=== PATIENT | female | born 1940 | race Caucasian/White ===

== ENCOUNTER 2018-01-21 14:30 | Emergency (ER) | payer OTHER ==
--- OUTSIDE RECORDS SUMMARY | 2018-01-21 14:32 | XMS REPORT | Clinical Summary ---
:1940 Author Organization [facility] Address [address] [place] [address] Care Team Providers Name Role Phone Everton Alcaraz MD Primary Care Provider Allergies Active Allergy Reactions Severity Noted Date Comments Aspirin GI Intolerance 07/12/2016 Codeine GI Intolerance 07/12/2016 Current Medications Prescription Sig. Disp. Refills Start Date End Date Status zolpidem (AMBIEN) 5 MG Take 5 mg by mouth Active tablet nightly as needed for sleep. amLODIPine (NORVASC) 5 MG Take 5 mg by mouth Active tablet daily. lisinopril Take 5 mg by mouth Active (PRINIVIL,ZESTRIL) 5 MG daily. tablet levothyroxine (SYNTHROID, Take 50 mcg by Active LEVOTHROID) 50 MCG tablet mouth every morning. Active Problems Problem Noted Date Diaphragmatic hernia 07/12/2016 Social History Tobacco Use Types Packs/Day Years Used Date Never Smoker Sex Assigned at Date Recorded Not on file Last Filed Vital Signs Not on file Plan of Treatment Health Maintenance Due Date Last Done Comments SHINGRIX VACCINE (#1) 1989 ZOSTER VACCINE 1999 PNEUMOCOCCAL POLYSACCHARIDE VACCINE AGE 65 AND OVER 2004 PNEUMOCOCCAL-13 2004 INFLUENZA VACCINE 03/14/2018 Implants Implanted Type Area Truss Driver Helper Device Expiration Model / Identifier Date Serial / Lot Tissue Renfrcmnt Bioabsrbl 7x10cm [place] Bio-A - [id number] Surgical N/A: W L GORE 08/13/2018 [id number] / Implanted: 07/12/2016 (Quantity not on file) Mesh or Esophagus [id number] / Tissue [id number] Barrier Products Results Not on fileafter 01/20/2017 Insurance Payer Benefit Plan / Group Subscriber ID Type Phone Address MEDICARE RAILROAD MEDICARE RAILROAD xxxxxxxxxxx Medicare Home: [address] [place], [place] [phone] [place] [address]
[2018-01-21] MEDS ORDERED: FENTANYL CITR 100 MCG/2 ML ONE ×2 (15:14→16:21)
[2018-01-21 15:22] LABS: Absolute Lymphocytes (CBC) 2.2 K/uL (0.7-4.9); Absolute Monocytes 0.9 K/uL (0.1-1.3); Absolute Neutrophil 8.5 K/uL (1.8-8.0); Basophils % 0.5 % (0-1.3); Eosinophils % 0.8 % (0-4.4); Hematocrit 41.1 % (36.0-45.0); Lymphocytes % 18.5 % (15.3-44.8); MCH 33.7 pg (27.0-35.0); MCV 101.6 fL (80-100); MPV 9.8 fL (7.6-11.3); Monocytes % 7.4 % (3.3-12.3); RBC Red Blood Cell Count 4.05 M/uL (3.86-4.86)
[2018-01-21 16:04] LABS: Potassium 4.6 mEq/L (3.6-5.0)
[2018-01-21] MEDS ORDERED: NA CHLORIDE 0.9% 1,000 ML ONE ×2 (16:25→16:27)
--- NOTE | 2018-01-21 17:34 | RAD REPORT ---
EXAM DESCRIPTION: CT - Head C Spine Derek Machado - 01/21/2018 5:04 pm CLINICAL HISTORY: Head and neck injury with chest and abdominal pain status post fall from report. . Head and neck pain . TECHNIQUE: Computed axial tomography of the head and cervical spine was obtained Computed axial tomography of the chest, abdomen and pelvis was obtained. 100 cc Isovue-300 was given intravenously coronal and sagittal reconstruction was performed. All CT scans are performed using dose optimization technique as appropriate and may include automated exposure control or mA/KV adjustment according to patient size. COMPARISON: CT abdomen January 2017 FINDINGS: An intracranial bleed is not seen. Mild to moderate low-density areas within periventricul ar, deep and subcortical white matter likely represent ischemic changes secondary to small vessel dis ease. The ventricles are normal in caliber. An extra-axial fluid collection is not noted. Minimal anterior subluxation of C2 on C3 is present. Mild posterior subluxation of C5 on C6 is seen. Spondylosis is most marked at C5-6 and C6-7 resulting in mild central and mild to moderate foraminal stenosis. A cervical fracture is not seen. No dislocation is seen. A mediastinal hematoma is not noted. A pleural effusion is not present. A lung contusion is not seen. Nondisplaced fractures involve the 6th,, seventh and eighth lateral right ribs. Additional bilateral rib fractures probably are chronic. The liver, spleen, pancreas, adrenals, kidneys and bladder do not demonstrate a traumatic injury. Sma ll hepatic cyst is present. Prominence of the biliary tree presumably is physiologic in this elderly patient status post cholecystectomy. This should be correlated clinically with appropriate lab values . . A small hiatal hernia is present IMPRESSION: 1. No acute intracranial abnormality is seen 2. A cervical fracture is not visualized. If the patient continues have symptoms to suggest intracran ial/spinal cord pathology then MRI would be recommended. 3. Nondisplaced acute fractures involving the sixth, seventh and eighth right lateral ribs. 4. No traumatic injury involving the abdomen/pelvis is seen
[2018-01-21] MEDS ORDERED: ONDANSETRON 4 MG/2 ML VIAL ONE (18:26)
[2018-01-21] MEDS ORDERED: HYDROCODONE/APAP 10/325 TAB ONE (18:26)
--- NOTE | 2018-01-21 19:02 | ER ---
Nurse's Notes [facility] Name: Machelle Suggs Age: 77 yrs Sex: Female : 1940 Arrival Date: 01/21/2018 Time: 14:39 Bed 26 Private MD: Diagnosis: Multiple fractures of ribs, right side Presentation: 01/21 15:41 Presenting complaint: EMS states: Pt. tripped and fell off from her porch approx. 3 rk2 feet, denies LOC. C/O back and rib pain. Pt. states that her dog tripped her. Transition of care: patient was not received from another setting of care. Onset of symptoms was January 21, 2018. Risk Assessment: Do you want to hurt yourself or someone else? Patient reports no desire to harm self or others. Initial Sepsis Screen: Does the patient meet any 2 criteria? No. Patient's initial sepsis screen is negative. Does the patient have a suspected source of infection? No. Patient's initial sepsis screen is negative. Care prior to arrival: Cervical collar in place. IV initiated. 15:41 Method Of Arrival: EMS [facility] 15:41 Acuity: ALIA 3 rk2 Triage Assessment: 15:42 General: Appears uncomfortable, well developed, well nourished, Behavior is calm, rk2 cooperative. Pain: Complains of pain in rib/back pain. Neuro: Level of Consciousness is alert, obeys commands, Oriented to person, place, time, situation. Respiratory: Airway is patent Respiratory effort is even, unlabored, Respiratory pattern is regular, symmetrical. Derm: Skin is pink, warm \T\ dry. Historical: - Allergies: 15:44 No Known Allergies; rk2 - Immunization history:: Pneumococcal vaccine status is unknown. - Social history:: Smoking status: Patient/guardian denies using tobacco. - Ebola Screening: : Patient negative for fever greater than or equal to 101.5 degrees Fahrenheit, and additional compatible Ebola Virus Disease symptoms. Screenin:39 Abuse screen: Denies threats or abuse. Nutritional screening: No deficits noted. rk2 Tuberculosis screening: No symptoms or risk factors identified. Fall Risk Assessment: 14:39 General: Appears uncomfortable, slender, well groomed, well developed, well nourished, tl3 Behavior is calm, cooperative, appropriate for age. Pain: Complains of pain in rib pain bilaterally. Neuro: Level of Consciousness is awake, alert, Oriented to person, place, time, situation, Appropriate for age. Cardiovascular: Heart tones S1 S2 present Patient's skin is warm and dry. Respiratory: Airway is patent Respiratory effort is even, unlabored, Respiratory pattern is regular, symmetrical, Breath sounds are clear bilaterally. GI: No deficits noted. No signs and/or symptoms were reported involving the gastrointestinal system. : No deficits noted. No signs and/or symptoms were reported regarding the genitourinary system. EENT: No deficits noted. No signs and/or symptoms were reported regarding the EENT system. Derm: No deficits noted. No signs and/or symptoms reported regarding the dermatologic system. 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 Pain is 9 out of 10 on a pain scale. pt tripped over puppy and fell of of porch flat onto her back, received 100mcg of Fentanyl and 5 mg morphine HARDWARE SUPPLIES SALES REPRESENTATIVE has no head pain, no LOC no vomiting, c/o pain mainly to bilateral rib area with palpation. 16:38 Reassessment: Pt. taken to CT. rk2 17:30 Reassessment: Patient appears in no apparent distress at this time. No changes from [facility] previously documented assessment. Patient and/or family updated on plan of care and expected duration. Pain level reassessed. 19:06 Reassessment: Pt. able to sit up and stand up with minimal assistance... pt. taken to [facility] restroom by wheelchair. Vital Signs: 14:39 BP 130 / 52; Pulse 76; Resp 18; Pulse Ox 100% ; tl3 15:00 BP 121 / 77; Pulse 52; Resp 17; Pulse Ox 98% on R/A; rk2 16:30 BP 168 / 79; Pulse 79; Resp 22; Pulse Ox 98% on 2 lpm NC; tl3 16:30 pt O2 sats dropped to 76% on room air, 2 L/M placed per NC, pt breathing shallow quick tl3 breaths ED Course: 14:39 Patient arrived in ED. iw 14:39 removal of back board. Maintain EMS IV. Dressing intact. Good blood return noted. Site tl3 clean \T\ dry. Gauge \T\ site: 20g RAC. 14:41 Aj Ferrer MD is Attending Physician. mraimar 14:46 Shun Olvera NP is PHCP. pm1 15:16 Betty Nicole, RN is Primary Nurse. rk2 15:39 Patient has correct armband on for positive identification. Placed in gown. Bed in low rk2 position. Call light in reach. Pulse ox on. 15:42 Triage completed. rk2 15:44 Arm band placed on right wrist. rk2 16:37 CT Traumagram (Head C Spine CAP W Con) Sent. rk2 17:03 CT completed. Patient moved to CT via stretcher. Patient moved back from CT. cw1 17:04 CT Traumagram (Head C Spine CAP W Con) In Process Unspecified. EDMS 19:52 IV discontinued. rk2 Administered Medications: 15:15 Drug: fentaNYL (PF) 50 mcg Route: IVP; Site: right forearm; rk2 19:30 Follow up: Response: No adverse reaction rk2 16:22 Drug: fentaNYL (PF) 50 mcg Route: IVP; Site: right forearm; rk2 19:30 Follow up: Response: No adverse reaction rk2 16:26 Drug: NS 0.9% 1000 ml Route: IV; Rate: 1000 ml; Site: right forearm; rk2 18:27 Drug: Zofran 4 mg Route: IVP; Site: right forearm; rk2 19:30 Follow up: Response: No adverse reaction rk2 18:28 Drug: Hubbard 10 mg-325 mg 1 tabs Route: PO; rk2 19:30 Follow up: Response: No adverse reaction rk2 Outcome: 19:01 Discharge ordered by . pm1 19:51 Discharged to home via wheelchair. rk2 19:51 Condition: improved 19:51 Discharge instructions given to patient, Prescriptions given X 19:52 Patient left the ED. rk2 Signatures: Dispatcher [employer] EDMS Aj Ferrer MD MD cha Williams, Irene, RN Mar Hernandez cw1 Shun Olvera, JAMIE MEDICAL CARE ADMINISTRATOR pm1 Betty Nicole, ROOSEVELT ALBERT rk2 Barbara Delaney RN RN tl3
--- NOTE | 2018-01-21 19:02 | EDPHYS ---
Physician Documentation [facility] Name: Machelle Suggs Age: 77 yrs Sex: Female : 1940 Arrival Date: 01/21/2018 Time: 14:39 Bed 26 Private MD: ED Physician Aj Ferrer HPI: 01/21 17:32 This 77 yrs old Female presents to ER via EMS with complaints of Fall injury, pm1 rib pain. 17:32 Details of fall: The patient fell from a height, patient fell from her porch. Onset: pm1 The symptoms/episode began/occurred just prior to arrival. Severity of symptoms: in the emergency department the symptoms have improved, Patient given fentanyl and morphine IV in route by EMS. The patient has not experienced similar symptoms in the past. patient tripped over her dog and fell backwards off the porch. Porch approximately 3 foot high. Patient complaining of bilateral rib anterior rib pain. No headache, LOC, or neck pain. Patient without any back pain. Patient arrived by EMS back boarded and with C-collar. Historical: - Allergies: 15:44 No Known Allergies; rk2 - Immunization history:: Pneumococcal vaccine status is unknown. - Social history:: Smoking status: Patient/guardian denies using tobacco. - Ebola Screening: : Patient negative for fever greater than or equal to 101.5 degrees Fahrenheit, and additional compatible Ebola Virus Disease symptoms. ROS: 17:39 Constitutional: Negative for fever, chills, and weight loss, Eyes: Negative for injury, pm1 pain, redness, and discharge, ENT: Negative for injury, pain, and discharge, Neck: Negative for injury, pain, and swelling, Cardiovascular: Negative for chest pain, palpitations, and edema, Respiratory: Negative for shortness of breath, cough, wheezing, and pleuritic chest pain, Abdomen/GI: Negative for abdominal pain, nausea, vomiting, diarrhea, and constipation, Back: Negative for injury and pain, : Negative for injury, bleeding, discharge, and swelling, MS/Extremity: Negative for injury and deformity, Skin: Negative for injury, rash, and discoloration, Neuro: Negative for headache, weakness, numbness, tingling, and seizure. 17:39 Abdomen/GI: Positive for anterior lower rib pain. Exam: 17:40 Constitutional: This is a well developed, well nourished patient who is awake, alert, pm1 and in no acute distress. Head/Face: Normocephalic, atraumatic. Eyes: Pupils equal round and reactive to light, extra-ocular motions intact. Lids and lashes normal. Conjunctiva and sclera are non-icteric and not injected. Cornea within normal limits. Periorbital areas with no swelling, redness, or edema. ENT: Nares patent. No nasal discharge, no septal abnormalities noted. Tympanic membranes are normal and external auditory canals are clear. Oropharynx with no redness, swelling, or masses, exudates, or evidence of obstruction, uvula midline. Mucous membranes moist. Neck: Trachea midline, no thyromegaly or masses palpated, and no cervical lymphadenopathy. Supple, full range of motion without nuchal rigidity, or vertebral point tenderness. No Meningismus. 17:40 Cardiovascular: Regular rate and rhythm with a normal S1 and S2. No gallops, murmurs, or rubs. No pulse deficits. Respiratory: Lungs have equal breath sounds bilaterally, clear to auscultation and percussion. No rales, rhonchi or wheezes noted. No increased work of breathing, no retractions or nasal flaring. Abdomen/GI: Soft, non-tender, with normal bowel sounds. No distension or tympany. No guarding or rebound. No evidence of tenderness throughout. Back: No spinal tenderness. No costovertebral tenderness. Full range of motion. Skin: Warm, dry with normal turgor. Normal color with no rashes, no lesions, and no evidence of cellulitis. MS/ Extremity: Pulses equal, no cyanosis. Neurovascular intact. Full, normal range of motion. 17:40 Chest/axilla: Inspection: normal, Palpation: tenderness, of the lower lateral right and left ribs, that totally reproduces the patient's complaints. 17:40 Neuro: Orientation: is normal, Mentation: is normal, Cranial nerves: CN II- XII are normal as tested, Cerebellar function: normal finger to nose testing, Motor: moves all fours, strength is 5/5 in all extremities. Vital Signs: 14:39 BP 130 / 52; Pulse 76; Resp 18; Pulse Ox 100% ; tl3 15:00 BP 121 / 77; Pulse 52; Resp 17; Pulse Ox 98% on R/A; rk2 16:30 BP 168 / 79; Pulse 79; Resp 22; Pulse Ox 98% on 2 lpm NC; tl3 16:30 pt O2 sats dropped to 76% on room air, 2 L/M placed per NC, pt breathing shallow quick tl3 breaths MDM: 14:42 Patient medically screened. [facility] 18:08 Data reviewed: vital signs. Data interpreted: Pulse oximetry: on room air is 98 %. pm1 Interpretation: normal. Counseling: I had a detailed discussion with the patient and/or guardian regarding: the historical points, exam findings, and any diagnostic results supporting the discharge/admit diagnosis, lab results, radiology results. 18:56 ED course: Patient of Dr. Lee. Patient offered admission. Patient declined and pm1 requested pain medications and antinausea medicine to take at home. Will discharge patient home with Tylenol #3 and Zofran as she requested. Instructed patient on return precaustions. 01/21 14:48 Order name: Basic Metabolic Panel; Complete Time: 16:12 pm1 01/21 14:48 Order name: CBC with Diff; Complete Time: 15:35 pm1 01/21 14:48 Order name: Creatinine for Radiology; Complete Time: 16:39 pm1 01/21 14:48 Order name: Type And Screen; Complete Time: 16:39 pm1 01/21 16:47 Order name: ABO/RH no charge; Complete Time: 16:55 EDMS 01/21 19:32 Order name: Urine Dipstick--Ancillary (enter results) 2 01/21 14:48 Order name: CT Traumagram (Head C Spine CAP W Con); Complete Time: 17:47 pm1 01/21 14:48 Order name: Labs collected and sent; Complete Time: 15:16 pm1 01/21 14:48 Order name: Urine Dipstick-Ancillary (obtain specimen); Complete Time: 19:51 pm1 01/21 15:30 Order name: Labs - recollect needed; Complete Time: 16:06 bd Administered Medications: 15:15 Drug: fentaNYL (PF) 50 mcg Route: IVP; Site: right forearm; rk2 19:30 Follow up: Response: No adverse reaction rk2 16:22 Drug: fentaNYL (PF) 50 mcg Route: IVP; Site: right forearm; rk2 19:30 Follow up: Response: No adverse reaction rk2 16:26 Drug: NS 0.9% 1000 ml Route: IV; Rate: 1000 ml; Site: right forearm; rk2 18:27 Drug: Zofran 4 mg Route: IVP; Site: right forearm; rk2 19:30 Follow up: Response: No adverse reaction rk2 18:28 Drug: [place] 10 mg-325 mg 1 tabs Route: PO; rk2 19:30 Follow up: Response: No adverse reaction rk2 Disposition: 01/22 09:08 Co-signature as Attending Physician, Aj Ferrer MD I agree with the assessment and marimar plan of care. Disposition: 01/21/18 19:01 Discharged to Home. Impression: Multiple fractures of ribs, right side. - Condition is Stable. - Discharge Instructions: Rib Fracture. - Prescriptions for Tylenol- Codeine #3 300-30 mg Oral Tablet - take 2 tablet by ORAL route every 6 hours As needed; 30 tablet. Zofran 4 mg Oral Tablet - take 1 tablet by ORAL route every 8 hours As needed; 20 tablet. - Medication Reconciliation Form, Thank You Letter, Prescription Opioid Use form. - Follow up: Emergency Department; When: As needed; Reason: Worsening of condition. Follow up: Private Physician; When: 2 - 3 days; Reason: Recheck today's complaints, Continuance of care, Re-evaluation by your physician. - Problem is new. - Symptoms have improved. Signatures: Dispatcher [employer] EDMS Mindy Desouza Corey, MD MD cha Marinas, Patrick, RAZOR GRINDER RAZOR GRINDER pm1 Betty Nicole, RN RN rk2 Corrections: (The following items were deleted from the chart) 01/21 19:52 19:01 01/21/2018 19:01 Discharged to Home. Impression: Multiple fractures of ribs, rk2 right side. Condition is Stable. Forms are Medication Reconciliation Form, Thank You Letter, Antibiotic Education, Prescription Opioid Use. Follow up: Emergency Department; When: As needed; Reason: Worsening of condition. Follow up: Private Physician; When: 2 - 3 days; Reason: Recheck today's complaints, Continuance of care, Re-evaluation by your physician. Problem is new. Symptoms have improved. pm1
[2018-01-21 19:54] LABS: Urine Blood NEGATIVE (NEG); Urine Glucose NEGATIVE (NEG); Urine Protein NEGATIVE (NEG); Urine Specific Gravity 1.015 (1.005-1.030); Urine pH 5.5 (5.0-7.0)
== END 2018-01-21 19:52 | disposition home or self-care (01) ==
LOC: ER 14:30
DX: S22.41XA Multiple fractures of ribs, right side, initial encounter for closed fracture (principal); W17.89XA Other fall from one level to another, initial encounter; Y93.89 Activity, other specified; Y92.009 Unspecified place in unspecified non-institutional (private) residence as the place of occurrence of the external cause
CPT/HCPCS: 36415; 70450; 71260; 72125; 74177; 80048; 81003; 85025; 86850; 86900; 86901; J2405; J3010 ×2; J7030 ×2; Q9967; 96374; 96375; 99284

== ENCOUNTER 2018-07-04 12:43 | Observation (INO) | payer OTHER ==
--- OUTSIDE RECORDS SUMMARY | 2018-07-04 12:46 | XMS REPORT | Clinical Summary ---
:1940 Author Organization [facility] Address [address] [place] [address] Care Team Providers Name Role Phone Everton Alcaraz MD Primary Care Provider Allergies Active Allergy Reactions Severity Noted Date Comments Aspirin GI Intolerance 07/12/2016 Codeine GI Intolerance 07/12/2016 Medications Medication Sig Dispensed Refills Start Date End Date Status zolpidem (AMBIEN) 5 MG Take 5 mg by 0 Active tablet mouth nightly as needed for sleep. amLODIPine (NORVASC) 5 Take 5 mg by 0 Active MG tablet mouth daily. lisinopril Take 5 mg by 0 Active (PRINIVIL,ZESTRIL) 5 MG mouth daily. tablet levothyroxine Take 50 mcg by 0 Active (SYNTHROID, LEVOTHROID) mouth every 50 MCG tablet morning. Active Problems Problem Noted Date Diaphragmatic hernia 07/12/2016 Social History Tobacco Use Types Packs/Day Years Used Date Never Smoker Sex Assigned at Date Recorded Not on file Job Start Date Occupation Industry Not on file Not on file Not on file Travel History Travel Start Travel End No recent travel history available. Last Filed Vital Signs Not on file Plan of Treatment Health Maintenance Due Date Last Done Comments SHINGRIX VACCINE (1 of 2) 1989 ZOSTER VACCINE 1999 PNEUMOCOCCAL POLYSACCHARIDE VACCINE AGE 65 AND OVER 2004 PNEUMOCOCCAL-13 2004 INFLUENZA VACCINE 03/14/2018 Implants Implanted Type Area Manager Food Safety Device Shelf Model / Identifier Expiration Serial / Date Lot Tissue Renfrcmnt Bioabsrbl 7x10cm [place] [employer] - [id number] Surgical N/A: W L GORE 08/13/2018 [id number] / Implanted: 07/12/2016 (Quantity not on file) Mesh or Esophagus [id number] / Tissue [id number] Barrier Products Results Not on fileafter 07/03/2017 Insurance Payer Benefit Plan / Group Subscriber ID Type Phone Address [facility]ICARE [facility]AD [facility] Medicare Advance Directives Patient has advance care planning documents, and code status on file. For more information, please contact:[place] [address] Code Status Date Activated Date Inactivated Comments Full Code 07/12/2016 3:16 PM 07/15/2016 7:32 PM Code Status decision reached by: Patient
[2018-07-04 13:24] LABS: Arterial Blood Carboxyhemoglob 1.1 % (0-1.5); Blood Gas Oxyhemoglobin 96.8 % (94-97)
[2018-07-04] MEDS ORDERED: IBUPROFEN 200 MG TAB PO ONE (14:24)
[2018-07-04] MEDS ORDERED: ACETAMINOPHEN 500 MG TAB ONE (14:25)
[2018-07-04] MEDS ORDERED: ONDANSETRON 4 MG/2 ML VIAL ONE (14:25)
[2018-07-04] MEDS ORDERED: NA CHLORIDE 0.9% 1,000 ML ONE ×2 (14:25→16:12)
--- NOTE | 2018-07-04 14:28 | RAD REPORT ---
EXAM DESCRIPTION: RAD - Chest Single View - 07/04/2018 2:08 pm CLINICAL HISTORY: DYSPNEA Chest pain. COMPARISON: Chest Pa And Lat (2 Views) dated 06/24/2016; CHEST PA AND LAT 2 VIEW dated 09/17/2012 FINDINGS: Portable technique limits examination quality. The lungs are grossly clear. The heart is normal in size. Tortuous thoracic aorta with a hiatal herni a noted. IMPRESSION: No acute intrathoracic process suspected.
[2018-07-04 14:37] LABS: Urine Blood NEGATIVE (NEG); Urine Glucose NEGATIVE (NEG); Urine Protein NEGATIVE (NEG); Urine pH 5.5 (5.0-7.0)
[2018-07-04] MEDS ORDERED: FENTANYL CITR 100 MCG/2 ML ONE (15:07)
[2018-07-04 15:27] LABS: Absolute Lymphocytes (CBC) 3.2 K/uL (0.7-4.9); MCV 99.1 fL (80-100)
[2018-07-04 15:29] LABS: Absolute Neutrophil 5.4 K/uL (1.8-8.0); Basophils % 0.7 % (0-1.3); Eosinophils % 0.7 % (0-4.4); Hematocrit 47.8 % (36.0-45.0); Lymphocytes % 32.7 % (15.3-44.8); MPV 9.5 fL (7.6-11.3); Monocytes % 10.5 % (3.3-12.3); RBC Red Blood Cell Count 4.82 M/uL (3.86-4.86)
[2018-07-04 15:31] LABS: Protime INR 0.97
--- NOTE | 2018-07-04 15:33 | EKG ---
Test Date: 2018-07-04 Test Time: 13:05:12 Learning Program Manager: BRANDON MEASUREMENT RESULTS: Intervals: Rate: 96 SC: 168 QRSD: 70 QT: 370 QTc: 467 [place]: P: 47 SC: 168 QRS: 7 T: 27 INTERPRETIVE STATEMENTS: Normal sinus rhythm Cannot rule out Anterior infarct, age undetermined Abnormal ECG Compared to ECG 10/27/2016 14:25:15 Myocardial infarct finding now present Atrial premature complex(es) no longer present Electronically Signed On 07-04-18 15:32:33 RELATIONS MANAGER by Tiago Morton
[2018-07-04 15:46] LABS: ALT/SGPT 17 U/L (12-78); AST/SGOT 22 U/L (15-37); Albumin 2.9 g/dL (3.4-5.0); Alkaline Phosphatase 114 U/L (45-117); BUN Blood Urea Nitrogen 13 mg/dL (7-18); Bicarbonate 20 mmol/L (21-32); Bilirubin Direct 0.4 mg/dL (0-0.2); Bilirubin Total 1.1 mg/dL (0.2-1.0); CKMB Creatine Kinase MB < 1.0 ng/mL (0.3-3.6); Creatine Phosphokinase 31 U/L (26-192); Glucose Level 92 mg/dL (74-106); Potassium 4.4 mmol/L (3.5-5.1); Protein, Total 6.4 g/dL (6.4-8.2); Sodium Level 140 mmol/L (136-145); Troponin (Emerg Dept Use Only) < 0.02 ng/mL (0.0-0.045)
[2018-07-04 15:55] LABS: Platelet Estimate ADEQ; Urine White Blood Cell Casts OK
[2018-07-04 15:57] LABS: Blood Morphology Comment NOT SEEN (NOT SEEN)
[2018-07-04] MEDS ORDERED: MORPHINE 4 MG/ML SYR ONE (16:39)
--- NOTE | 2018-07-04 17:09 | RAD REPORT ---
EXAM DESCRIPTION: CT - Chest For Pe Angio - 07/04/2018 4:58 pm CLINICAL HISTORY: sob COMPARISON: January [address] TECHNIQUE: Dynamically enhanced axial 3 mm thick images of the chest were obtained during administra tion of <100> mL Isovue 370 IV contrast. Coronal and oblique reconstruction images were generated and reviewed. Exam utilizes a protocol for optimal evaluation of pulmonary arterial tree. Maximum intensity projections 3D imaging was utilized All CT scans are performed using dose optimization technique as appropriate and may include automated exposure control or mA/KV adjustment according to patient size. FINDINGS: A pulmonary embolus is not seen. A thoracic aortic aneurysm is not noted. A pleural effusion is not seen. A pericardial effusion is not seen. A small to moderate hiatal hernia is seen A lung consolidation is not present. A sub centimeter left lower lobe nodule is unchanged IMPRESSION: Negative for a pulmonary embolism.
--- NOTE | 2018-07-04 17:17 | RAD REPORT ---
EXAM DESCRIPTION: CT - Abdomen Pelvis W Contrast - 07/04/2018 4:58 pm CLINICAL HISTORY: Abdominal pain COMPARISON: none. TECHNIQUE: Computed axial tomography of the abdomen pelvis was obtained. 100 cc Isovue-300 was admin istered intravenously. Oral contrast was not requested which limits evaluation of bowel. All CT scans are performed using dose optimization technique as appropriate and may include automated exposure control or mA/KV adjustment according to patient size. FINDINGS: Images are degraded by patient motion artifact Fatty infiltration liver. 2 centimeter hepatic cyst. The common hepatic common bile ducts are more di lated than on the prior exam measuring up to 16 millimeters. Cholecystectomy has been performed The Spleen, pancreas, adrenal and kidneys appear unremarkable. Small to moderate hiatal hernia Diverticula stem from the colon without evidence of diverticulitis. The appendix is normal IMPRESSION: Prominence of the biliary tree. This may be physiologic or secondary to pathology such a s a stricture. This should be correlated clinically with appropriate lab values. MRCP may be helpful for further evaluation
--- NOTE | 2018-07-04 17:30 | ER ---
Nurse's Notes [facility] Name: Machelle Suggs Age: 78 yrs Sex: Female : 1940 Arrival Date: 07/04/2018 Time: 12:49 Bed 19 Private MD: Diagnosis: Nausea and vomiting;Dehydration;Dyspnea;Alkalosis Presentation: 07/04 12:42 Presenting complaint: EMS states: dyspnea after getting up from her recliner ambulating sv to the living room. Pt reports having n/v the past 2 days and not eating. BP 150/86 HR-118 98% RA Temp-98.3 BS-109. Transition of care: patient was not received from another setting of care. Onset of symptoms was July 04, 2018. Risk Assessment: Do you want to hurt yourself or someone else? Patient reports no desire to harm self or others. Initial Sepsis Screen: Does the patient meet any 2 criteria? No. Patient's initial sepsis screen is negative. Does the patient have a suspected source of infection? No. Patient's initial sepsis screen is negative. Care prior to arrival: Glucose check: 109. 12:42 Method Of Arrival: EMS: [facility] sv 12:42 Acuity: ALIA 3 sv Triage Assessment: 12:55 General: Appears in no apparent distress. uncomfortable, Behavior is cooperative, sv anxious. Pain: Complains of pain in hips Pain currently is 2 out of 10 on a pain scale. Is chronic. Neuro: Level of Consciousness is awake, alert, obeys commands, Oriented to person, place, time, situation, Moves all extremities. Full function Speech is normal. Respiratory: Reports shortness of breath on exertion Airway is patent Respiratory effort is even, labored, Respiratory pattern is symmetrical, tachypnea Breath sounds are clear bilaterally. Onset: The symptoms/episode began/occurred this morning, the patient has moderate shortness of breath. GI: Reports nausea, vomiting. Derm: Skin is normal. Historical: - Allergies: 12:54 No Known Allergies; sv - Home Meds: 12:54 Dexilant oral oral [Active]; Doxycycline Oral [Active]; Phenergan Oral [Active]; sv Prilosec Oral [Active]; Tramadol Oral [Active]; Zofran Oral [Active]; - PMHx: 12:54 Hypertension; Neuropathy; left breast cancer; sv - Immunization history:: Adult Immunizations up to date. - Social history:: Smoking status: Patient/guardian denies using tobacco. - Ebola Screening: : No symptoms or risks identified at this time. Screenin:57 Abuse screen: Denies threats or abuse. Denies injuries from another. Nutritional sv screening: No deficits noted. Tuberculosis screening: No symptoms or risk factors identified. Fall Risk None identified. Assessment: 12:57 Cardiovascular: Rhythm is sinus tachycardia. sv 13:00 Reassessment: Patient and/or family updated on plan of care and expected duration. Pain sv level reassessed. Patient is alert, oriented x 3, equal unlabored respirations, skin warm/dry/pink. Pain: Complains of pain in face and scalp Pain currently is 8 out of 10 on a pain scale. 14:53 Reassessment: Patient appears in no apparent distress at this time. No changes from sv previously documented assessment. Patient and/or family updated on plan of care and expected duration. Pain level reassessed. Patient is alert, oriented x 3, equal unlabored respirations, skin warm/dry/pink. 16:38 Reassessment: Patient appears in no apparent distress at this time. No changes from sv previously documented assessment. Patient and/or family updated on plan of care and expected duration. Pain level reassessed. Patient is alert, oriented x 3, equal unlabored respirations, skin warm/dry/pink. 17:23 Reassessment: Patient appears in no apparent distress at this time. No changes from sv previously documented assessment. Patient and/or family updated on plan of care and expected duration. Pain level reassessed. Patient is alert, oriented x 3, equal unlabored respirations, skin warm/dry/pink. 18:00 Reassessment: Patient appears in no apparent distress at this time. No changes from sv previously documented assessment. Patient and/or family updated on plan of care and expected duration. Pain level reassessed. Patient is alert, oriented x 3, equal unlabored respirations, skin warm/dry/pink. Nurse to call back for report. Vital Signs: 12:55 BP 157 / 82; Pulse 98; Resp 26; Temp 98.6; Pulse Ox 100% on R/A; Weight 62.6 kg; Height sv 5 ft. 2 in. (157.48 cm); Pain 2/10; 15:03 BP 155 / 83; Pulse 100; Resp 25; Pulse Ox 100% on 2 lpm NC; jb1 16:38 BP 122 / 105; Pulse 86; Resp 26; Temp 98.8; Pulse Ox 100% on R/A; sv 12:55 Body Mass Index 25.24 (62.60 kg, 157.48 cm) sv ED Course: 12:49 Patient arrived in ED. sv 12:49 Carin Hutchinson, RN is Primary Nurse. sv 12:52 Triage completed. sv 12:55 Arm band placed on. sv 12:57 Awaiting ED provider evaluation. sv 12:57 Patient has correct armband on for positive identification. Placed in gown. Bed in low sv position. Call light in reach. Side rails up X2. monitor tech on. Pulse ox on. NIBP on. Door closed. Warm blanket given. Head of bed elevated. 13:08 Kristen Noland FNP-C is PHCP. kb 13:08 Aj Ferrer MD is Attending Physician. kb 13:13 Missed attempt(s): 22 gauge in right antecubital area. jb1 13:14 Missed attempt(s): 22 gauge in right forearm. jb1 13:26 EKG done, by cardiopulmonary technologist chief. reviewed by Kristen SOLANO. sm3 13:45 Initial lab(s) drawn, by ct, sent to lab. Inserted saline lock: 22 gauge in right sv forearm, using aseptic technique. ,using aseptic technique. diffusics Blood collected. Flushed right forearm with 5 ml normal saline. 13:50 X-ray(s) taken. sv 14:09 Chest Single View XRAY In Process Unspecified. EDMS 15:52 Notified Nurse Practitioner and/or Physician Instrument Mechanics Supervisor of a critical lab result(s), sg Lactate 2.2. 16:[address] via stretcher. sv 17:02 CT Chest For PE Angio In Process Unspecified. EDMS 17:02 CT Abd/Pelvis - W/Contrast In Process Unspecified. EDMS 17:27 Sharda Tate MD is Hospitalizing Provider. kb 18:01 No provider procedures requiring assistance completed. Patient admitted, IV remains in sv place. intact. Administered Medications: 14:52 Drug: NS 0.9% 1000 ml Route: IV; Rate: 1000 ml; Site: right forearm; sv 16:00 Follow up: Response: No adverse reaction; IV Status: Completed infusion; IV Intake: sv 1000ml 14:52 Drug: Zofran 4 mg Route: IVP; Site: right forearm; sv 15:29 Follow up: Response: No adverse reaction sv 14:57 Not Given (Patient Refused): Tylenol 1000 mg PO once kb 15:06 Drug: fentaNYL (PF) 25 mcg Route: IVP; Site: right forearm; sv 15:29 Follow up: Response: No adverse reaction sv 16:29 CANCELLED (Duplicate Order): NS 0.9% (30 ml/kg) 30 ml/kg IV at bolus once; Sepsis sv Protocol 16:29 Drug: NS 0.9% 870 ml Route: IV; Rate: bolus; Site: right forearm; sv 18:19 Follow up: Response: No adverse reaction; IV Status: Completed infusion; IV Intake: sv 870ml 16:37 Drug: morphine 2 mg Route: IVP; Site: right forearm; sv 18:19 Follow up: Response: No adverse reaction sv Intake: 16:00 IV: 1000ml; Total: 1000ml. sv 18:19 IV: 870ml; Total: 1870ml. sv Output: 17:23 Urine: 100ml (Voided); Total: 100ml. sv Outcome: 17:28 Decision to Hospitalize by Provider. kb 18:18 Admitted to Med/surg accompanied by tech, via stretcher, room 229, with oxygen, with sv chart, Report called to Charley ALBERT 18:18 Condition: stable 18:18 Instructed on the need for admit. 18:29 Patient left the ED. sv Signatures: Dispatcher [employer] EDMS Eduardo Davis jbKristen Ortega, ULTRASOUND APPLICATIONS SPECIALIST-C ULTRASOUND APPLICATIONS SPECIALIST-Carin Nascimento, RN RN Stevan Garcia RN RN sg Montes, Shakira 3
--- NOTE | 2018-07-04 17:31 | EDPHYS ---
Physician Documentation [facility] Name: Machelle Suggs Age: 78 yrs Sex: Female : 1940 Arrival Date: 07/04/2018 Time: 12:49 Bed 19 Private MD: ED Physician Aj Ferrer HPI: 07/04 14:06 This 78 yrs old Female presents to ER via EMS with complaints of Breathing kb Difficulty, Nausea/Vomiting. 14:06 The patient has shortness of breath with light activity. Onset: The symptoms/episode kb began/occurred today, 1 hour(s) ago. Duration: The symptoms are continuous, and are unchanged since they started. The patient's shortness of breath is aggravated by exertion, is alleviated by nothing. Associated signs and symptoms: Pertinent positives: nausea, vomiting. Severity of symptoms: At their worst the symptoms were moderate in the emergency department the symptoms are unchanged. The patient has not experienced similar symptoms in the past. The patient has been recently seen by a physician: the patient's primary care provider, Dr. Varela. 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 Denies cough, fever and hx of similar symptoms. Reports she has had nausea and vomiting for [address] mahajan [address] was scheduled for today at 1400. . Historical: - Allergies: 12:54 No Known Allergies; sv - Home Meds: 12:54 Dexilant oral oral [Active]; Doxycycline Oral [Active]; Phenergan Oral [Active]; sv Prilosec Oral [Active]; Tramadol Oral [Active]; Zofran Oral [Active]; - PMHx: 12:54 Hypertension; Neuropathy; left breast cancer; sv - Immunization history:: Adult Immunizations up to date. - Social history:: Smoking status: Patient/guardian denies using tobacco. - Ebola Screening: : No symptoms or risks identified at this time. ROS: 14:05 Constitutional: Negative for fever, chills, and weight loss, ENT: Negative for injury, kb pain, and discharge, Neck: Negative for injury, pain, and swelling, Cardiovascular: Negative for chest pain, palpitations, and edema, Back: Negative for injury and pain, MS/Extremity: Negative for injury and deformity, Skin: Negative for injury, rash, and discoloration, Neuro: Negative for headache, weakness, numbness, tingling, and seizure. 14:05 Respiratory: Positive for dyspnea on exertion, shortness of breath, Negative for cough, hemoptysis, orthopnea, pleurisy, sputum production, wheezing. 14:05 Abdomen/GI: Positive for nausea, vomiting, and diarrhea, anorexia, Negative for abdominal pain, constipation, abdominal cramps, abdominal distension. Exam: 14:06 Constitutional: This is a well developed, well nourished patient who is awake, alert, kb and in no acute distress. Head/Face: Normocephalic, atraumatic. ENT: Nares patent. No nasal discharge, no septal abnormalities noted. Tympanic membranes are normal and external auditory canals are clear. Oropharynx with no redness, swelling, or masses, exudates, or evidence of obstruction, uvula midline. Mucous membranes moist. Neck: Trachea midline, no thyromegaly or masses palpated, and no cervical lymphadenopathy. Supple, full range of motion without nuchal rigidity, or vertebral point tenderness. No Meningismus. Chest/axilla: Normal chest wall appearance and motion. Nontender with no deformity. No lesions are appreciated. Cardiovascular: Regular rate and rhythm with a normal S1 and S2. No gallops, murmurs, or rubs. Normal PMI, no JVD. No pulse deficits. Abdomen/GI: Soft, non-tender, with normal bowel sounds. No distension or tympany. No guarding or rebound. No evidence of tenderness throughout. Back: No spinal tenderness. No costovertebral tenderness. Full range of motion. Skin: Warm, dry with normal turgor. Normal color with no rashes, no lesions, and no evidence of cellulitis. MS/ Extremity: Pulses equal, no cyanosis. Neurovascular intact. Full, normal range of motion. Neuro: Awake and alert, GCS 15, oriented to person, place, time, and situation. Cranial nerves II-XII grossly intact. Motor strength 5/5 in all extremities. Sensory grossly intact. Cerebellar exam normal. Normal gait. 14:06 Respiratory: mild respiratory distress is noted, Respirations: labored breathing, that is mild, tachypnea, that is mild, Breath sounds: rhonchi, that are mild, are heard in the left lower lobe and left posterior lower lobe. Vital Signs: 12:55 BP 157 / 82; Pulse 98; Resp 26; Temp 98.6; Pulse Ox 100% on R/A; Weight 62.6 kg; Height sv 5 ft. 2 in. (157.48 cm); Pain 2/10; 15:03 BP 155 / 83; Pulse 100; Resp 25; Pulse Ox 100% on 2 lpm NC; jb1 16:38 BP 122 / 105; Pulse 86; Resp 26; Temp 98.8; Pulse Ox 100% on R/A; sv 12:55 Body Mass Index 25.24 (62.60 kg, 157.48 cm) sv MDM: 13:08 Patient medically screened. kb 14:05 Data reviewed: vital signs, nurses notes. Data interpreted: Pulse oximetry: on room air kb is 100 %. Interpretation: normal. 17:26 Counseling: I had a detailed discussion with the patient and/or guardian regarding: the kb historical points, exam findings, and any diagnostic results supporting the discharge/admit diagnosis, lab results, radiology results, the need for further work-up and treatment in the hospital. Physician consultation: Sharda Tate MD was contacted at 17:27, regarding admission, to the telemetry unit. patient's condition, and will see patient in ED, shortly. 07/04 12:57 Order name: ABG; Complete Time: 14:19 snw 07/04 12:57 Order name: Basic Metabolic Panel; Complete Time: 15:50 snw 07/04 12:57 Order name: Blood Culture Adult (2) snw 07/04 12:57 Order name: CBC with Diff; Complete Time: 15:58 snw 07/04 12:57 Order name: Ckmb; Complete Time: 15:50 snw 07/04 12:57 Order name: CPK; Complete Time: 15:50 snw 07/04 12:57 Order name: Lactate; Complete Time: 15:55 snw 07/04 12:57 Order name: LFT's; Complete Time: 15:50 snw 07/04 12:57 Order name: Procalcitonin; Complete Time: 16:32 snw 07/04 12:57 Order name: Protime (+inr); Complete Time: 15:34 snw 07/04 12:57 Order name: Ptt, Activated; Complete Time: 15:34 snw 07/04 12:57 Order name: Troponin (emerg Dept Use Only); Complete Time: 15:50 snw 07/04 13:50 Order name: Urine Dipstick--Ancillary (enter results); Complete Time: 14:57 bd 07/04 15:33 Order name: CBC Smear Scan; Complete Time: 15:58 EDMS 07/04 12:57 Order name: Chest Single View XRAY; Complete Time: 14:34 snw 07/04 12:57 Order name: Cardiac monitoring; Complete Time: 13:14 snw 07/04 12:57 Order name: EKG - Nurse/Tech; Complete Time: 13:14 snw 07/04 12:57 Order name: IV Saline Lock - Large Bore; Complete Time: 14:12 snw 07/04 12:57 Order name: Labs collected and sent; Complete Time: 14:12 snw 07/04 14:17 Order name: EKG Electrocardiogram; Complete Time: 14:34 EDMS 07/04 15:51 Order name: CT Chest For PE Angio; Complete Time: 17:20 kb 07/04 15:51 Order name: CT Abd/Pelvis - W/Contrast; Complete Time: 17:20 kb 07/04 12:57 Order name: O2 Per Protocol; Complete Time: 13:14 snw 07/04 12:57 Order name: O2 Sat Monitoring; Complete Time: 13:14 snw 07/04 12:57 Order name: Urine Dipstick-Ancillary (obtain specimen); Complete Time: 14:12 snw 07/04 14:08 Order name: Labs - recollect needed; Complete Time: 15:29 bd Administered Medications: 14:52 Drug: NS 0.9% 1000 ml Route: IV; Rate: 1000 ml; Site: right forearm; sv 16:00 Follow up: Response: No adverse reaction; IV Status: Completed infusion; IV Intake: sv 1000ml 14:52 Drug: Zofran 4 mg Route: IVP; Site: right forearm; sv 15:29 Follow up: Response: No adverse reaction sv 14:57 Not Given (Patient Refused): Tylenol 1000 mg PO once kb 15:06 Drug: fentaNYL (PF) 25 mcg Route: IVP; Site: right forearm; sv 15:29 Follow up: Response: No adverse reaction sv 16:29 CANCELLED (Duplicate Order): NS 0.9% (30 ml/kg) 30 ml/kg IV at bolus once; Sepsis sv Protocol 16:29 Drug: NS 0.9% 870 ml Route: IV; Rate: bolus; Site: right forearm; sv 18:19 Follow up: Response: No adverse reaction; IV Status: Completed infusion; IV Intake: sv 870ml 16:37 Drug: morphine 2 mg Route: IVP; Site: right forearm; sv 18:19 Follow up: Response: No adverse reaction sv Disposition: 07/04/18 17:28 Hospitalization ordered by Sharda Tate for Observation. Preliminary diagnosis are Nausea and vomiting, Dehydration, Dyspnea, Alkalosis. - Bed requested for Telemetry/MedSurg (observation). - Status is Observation. sv - Condition is Stable. - Problem is new. - Symptoms have improved. UTI on Admission? No Addendum: 07/09/2018 08:05 Co-signature as Attending Physician, Aj Ferrer MD I agree with the assessment and c benito plan of care. Signatures: Dispatcher [employer] EDMS Kristen Noland, JAVA SECURITY ENGINEER-C JAVA SECURITY ENGINEER-CkMindy Quintana Stephanie, RN Chica Rojas, Aj Hall RN, MD MD cha Therrien, Shelly, JAVA SECURITY ENGINEER-C JAVA SECURITY ENGINEER-Csnw Corrections: (The following items were deleted from the chart) 07/04 14:05 14:05 Abdomen/GI: Positive for nausea, vomiting, and diarrhea, Negative for abdominal kb pain, constipation, abdominal cramps, abdominal distension, anorexia, kb 16:29 15:59 NS 0.9% (30 ml/kg) 30 ml/kg IV at bolus once; Sepsis Protocol ordered. kb sv 16:29 16:29 NS 0.9% (30 ml/kg) 30 ml/kg IV at bolus once; Sepsis Protocol ordered. sv sv 17:49 17:28 Hospitalization Ordered by Sharda Tate MD for Observation. Preliminary diagnosis dw is Nausea and vomiting; Dehydration; Dyspnea; Alkalosis. Bed requested for Telemetry/MedSurg (observation). Status is Observation. Condition is Stable. Problem is new. Symptoms have improved. UTI on Admission? No. kb 18:29 17:49 07/04/2018 17:28 Hospitalization Ordered by Sharda Tate MD for Observation. sv Preliminary diagnosis is Nausea and vomiting; Dehydration; Dyspnea; Alkalosis. Bed requested for Telemetry/MedSurg (observation). Status is Observation. Condition is Stable. Problem is new. Symptoms have improved. UTI on Admission? No. dw
[2018-07-04] MEDS ORDERED: ACETAMINOPHEN 500 MG TAB PO PRN (18:31)
[2018-07-04] MEDS ORDERED: ALBUTEROL 2.5 MG/3 ML NEB SOL NEB PRN (18:31)
[2018-07-04] MEDS ORDERED: TRAMADOL HCL 50 MG TAB PO PRN ×2 (21:24→21:41)
[2018-07-04] MEDS ORDERED: METOPROLOL TAR 50 MG TAB PO ONE (21:34)
[2018-07-05] MEDS: ONDANSETRON 4 MG/2 ML VIAL IV PRN (05:14)
[2018-07-05] MEDS: AMLODIPINE 10 MG TAB PO SCH (05:15)
[2018-07-05] MEDS: hydroCHLOROthiazide 12.5 MG CAP PO SCH (05:17)
[2018-07-05] MEDS: LEVOTHYROXINE SOD 0.05 MG TABLET PO SCH (05:18)
[2018-07-05] MEDS ORDERED: LISINOPRIL PO SCH (06:00)
[2018-07-05] MEDS ORDERED: HYDROCHLOROTHIAZIDE PO SCH (06:00)
[2018-07-05] MEDS: LISINOPRIL 20 MG TAB PO SCH (06:00)
[2018-07-05] MEDS ORDERED: [UNRECOGNIZED DRUG - OTHER] PO SCH (06:00)
[2018-07-05 06:14] LABS: Albumin 2.6 g/dL (3.4-5.0); Bilirubin Total 0.9 mg/dL (0.2-1.0); Potassium 4.2 mmol/L (3.5-5.1); Protein, Total 5.6 g/dL (6.4-8.2)
[2018-07-05 06:19] LABS: Magnesium 1.6 mg/dL (1.8-2.4); Phosphorus 3.5 mg/dL (2.5-4.9)
[2018-07-05] MEDS ORDERED: MAGNESIUM SULFATE 1 gm IVPB 1 GM/100 ML BAG IV ONE (06:22)
[2018-07-05 07:47] LABS: Absolute Lymphocytes (CBC) 2.8 K/uL (0.7-4.9); Absolute Monocytes 0.8 K/uL (0.1-1.3); Absolute Neutrophil 4.9 K/uL (1.8-8.0); Basophils % 0.5 % (0-1.3); Eosinophils % 2.7 % (0-4.4); Hematocrit 44.1 % (36.0-45.0); Lymphocytes % 31.8 % (15.3-44.8); MCV 98.9 fL (80-100); MPV 9.3 fL (7.6-11.3); Monocytes % 9.6 % (3.3-12.3); RBC Red Blood Cell Count 4.46 M/uL (3.86-4.86)
[2018-07-05] MEDS ORDERED: PNEUMOCOCCAL VACCINE 0.5 ML IMVAC ONE (08:00)
[2018-07-05] MEDS ORDERED: INFLUENZA VACCINE (for 3y+) 0.5 ML DOSE IMVAC ONE (08:00)
--- NOTE | 2018-07-05 08:17 | P.HP ---
Certification for Inpatient Patient admitted to: Observation With expected LOS: <2 Midnights Patient will require the following post-hospital care: None Practitioner: I am a practitioner with admitting privileges, knowledge of patient current condition, hospital course, and medical plan of care. Services: Services provided to patient in accordance with Admission requirements found in Title 42 Section 412.3 of the Code of Federal Regulations Patient History Date of Service: 07/04/18 Reason for admission: Anorexia/weight loss/nausea&vomiting/odynophagia/ oropharyngeal candidiasis History of Present Illness: Patient is a 78-year-old female came to the hospital with intractable nausea and vomiting. Patient has not been feeling well and does not have much of an appetite. Patient has not had a strong desire to eat anything. She has been having some abdominal discomfort as well. She has been anorexic for the last few weeks. Patient has pain whenever she swallows anything. She saw her primary care provider who referred her to the public services assistant, Dr. Street. He has scheduled a CT scan as an outpatient. However, patient was not able to get this done in a timely manner so they decided to go to the emergency room. In the emergency room, She came to the hospital for further evaluation. In the emergency room, she was able to get her CT scan performed which revealed biliary duct distention. Patient was admitted to the hospital for further evaluation. Allergies codeine Adverse Reaction (Verified 10/27/16 14:14) Nausea/Vomiting Home Medications: Amlodipine Besylate 10 mg PO [id number] 10/27/16 Levothyroxine Sodium 50 mcg PO [id number] 10/27/16 Lisinopril/Hydrochlorothiazide [Lisinopril-Hctz 20-12.5 mg Tab] 12.5 mg PO [id number] 10/27/16 Tramadol HCl [Ultram] 50 mg PO PRN PRN 07/04/18 - Past Medical/Surgical History Has patient received pneumonia vaccine in the past: No Diabetic: No -: Hypertension -: Hypothyroid -: Rt Knee replacement -: Hysterectomy -: Cholecystectomu -: Hernia repair-hiatal - Family History Father Medical History: Heart disease, Hypertension Mother Medical History: Hypertension - Social History Smoking Status: Never smoker Alcohol use: Yes CD- Drugs: No Caffeine use: Yes Place of Residence: Home Review of Systems 10-point ROS is otherwise unremarkable Physical Examination - Vital Signs Temperature: 97.8 F Blood Pressure: 164/75 Pulse: 74 Respirations: 18 Pulse Ox (%): 95 - Physical Exam General: Alert, In no apparent distress, Oriented x3 HEENT: Atraumatic, PERRLA, Mucous membr. moist/pink, EOMI, Sclerae nonicteric Neck: Supple, 2+ carotid pulse no bruit, No LAD, Without JVD or thyroid abnormality Respiratory: Clear to auscultation bilaterally, Normal air movement Cardiovascular: Regular rate/rhythm, Normal S1 S2, Systolic murmur Gastrointestinal: Normal bowel sounds, Soft and benign, Non-distended, No rebound, No guarding, Tenderness Musculoskeletal: No clubbing, No swelling, No tenderness Integumentary: No rashes Neurological: Normal gait, Normal speech, Normal strength at 5/5 x4 extr, Normal tone, Sensation intact, Cranial nerves 3-12 intact, Normal affect Lymphatics: No axilla or inguinal lymphadenopathy - Studies Laboratory Data (last 24 hrs) 07/04/18 15:15: PT 11.5, INR 0.97, APTT 28.7 07/04/18 15:15: WBC 9.7, Hgb 16.4 H, Hct 47.8 H, Plt Count 256 07/04/18 15:15: Sodium 140, Potassium 4.4, BUN 13, Creatinine 1.20, Glucose 92, Total Bilirubin 1.1 H, AST 22, ALT 17, Alkaline Phosphatase 114 Microbiology Data (last 24 hrs): 07/04/18 13:40 Blood - Blood Anaerobic Blood Culture - Final Assessment & Plan - Problems (Diagnosis) (1) Esophageal candidiasis Current Visit: Yes Status: Acute (2) Intractable nausea and vomiting Current Visit: Yes Status: Acute (3) Anorexia Current Visit: Yes Status: Acute (4) Abdominal pain Current Visit: Yes Status: Acute (5) Hypertension Current Visit: Yes Status: Acute - Plan Plan: 1. IV hydration 2. Appetite stimulant 3. Monitor labs and microbiology for possible infectious etiology 4. Diflucan and nystatin 5. GI consultation 6. GI and DVT prophylaxis Discharge Plan: Home Plan to discharge in: 48 Hours - Advance Directives Does patient have a Living Will: No Does patient have a Durable POA for Healthcare: No - Code Status/Comfort Care Code Status Assessed: Yes Code Status: Full Code Critical Care: Yes Time Spent Managing PTS Care (In Minutes): 50
[2018-07-05] MEDS: FLUCONAZOLE 100 MG TAB PO SCH (08:52)
[2018-07-05] MEDS: NYSTATIN 500,000 UNIT/5 ML UDC PO SCH ×3 (08:53→20:22)
[2018-07-05] MEDS: ENOXAPARIN 40 MG/0.4 ML SQ SCH (08:53)
--- NOTE | 2018-07-05 18:03 | P.PN ---
Subjective Date of Service: 07/06/18 Chief Complaint: Anorexia/weight loss/nausea&vomiting/odynophagia/oropharyngeal candidiasis Patient seen and examined at bedside. No family at bedside. Case discussed with nursing staff. She is very sleepy, did not really want to talk though was able to answer appropriately. Review of Systems As noted Physical Examination - Vital Signs Temperature: 97.8 F Blood Pressure: 166/74 Pulse: 75 Respirations: 16 Pulse Ox (%): 96 - Physical Exam General: Alert, In no apparent distress, Oriented x3 HEENT: Atraumatic, PERRLA, EOMI Neck: Supple, JVD not distended Respiratory: Clear to auscultation bilaterally, Normal air movement Cardiovascular: Regular rate/rhythm, Normal S1 S2 Gastrointestinal: Normal bowel sounds, No tenderness Musculoskeletal: No tenderness Integumentary: No rashes Neurological: Normal speech, Normal tone, Normal affect Lymphatics: No axilla or inguinal lymphadenopathy - Studies Microbiology Data (last 24 hrs): 07/04/18 13:40 Blood - Blood Anaerobic Blood Culture - Final Assessment And Plan - Plan This is a 78-year-old female with: Intractable nausea and vomiting Abdominal pain Anorexia Hypertension Plan: 1. IV hydration 2. Appetite stimulant 3. Monitor labs and microbiology for possible infectious etiology 4. Diflucan and nystatin 5. GI consultation 6. GI and DVT prophylaxis
[2018-07-06] MEDS: LEVOTHYROXINE SOD 0.05 MG TABLET PO SCH (06:00)
[2018-07-06] MEDS: hydroCHLOROthiazide 12.5 MG CAP PO SCH (06:59)
[2018-07-06] MEDS: LISINOPRIL 20 MG TAB PO SCH (06:59)
[2018-07-06] MEDS: AMLODIPINE 10 MG TAB PO SCH (07:00)
[2018-07-06] MEDS: ONDANSETRON 4 MG/2 ML VIAL IV PRN (07:05)
[2018-07-06] MEDS: ENOXAPARIN 40 MG/0.4 ML SQ SCH (08:51)
[2018-07-06] MEDS: NYSTATIN 500,000 UNIT/5 ML UDC PO SCH ×3 (08:51→21:12)
[2018-07-06] MEDS: FLUCONAZOLE 100 MG TAB PO SCH (08:51)
--- NOTE | 2018-07-06 15:27 | RAD REPORT ---
EXAM DESCRIPTION: RAD - Hip Right 2 View - 07/06/2018 2:13 pm CLINICAL HISTORY: Fall, hip pain COMPARISON: None. FINDINGS: AP and frog-leg views of the right hip were obtained. There is no fracture or dislocation . No acute or destructive bony process seen. Degenerative changes at the acetabulum are mild for age . Mild to moderate SI joint degenerative change without acute component. IMPRESSION: Right hip joint degenerative change without fracture or acute finding.
--- NOTE | 2018-07-06 16:40 | P.PN ---
Subjective Date of Service: 07/06/18 Chief Complaint: Anorexia/weight loss/nausea&vomiting/odynophagia/oropharyngeal candidiasis Subjective: No new changes, No C/O voiced, Improving Patient seen and examined at bedside. Daughter at bedside. Chart reviewed and Case discussed with nursing staff. Patient awake, alert and oriented, sitting up in bed, smiling and talking to daughter at bedside. Looking much improved than yesterday. Patient states she feels so much better than when she initially came in. She still has not really eaten too much, did have a train front of her. She states that she does not enjoy the food here at the hospital too much. Otherwise no concerns or complaints this morning. Review of Systems As noted Physical Examination - Vital Signs Temperature: 97.8 F Blood Pressure: 166/74 Pulse: 75 Respirations: 16 Pulse Ox (%): 96 - Physical Exam General: Alert, In no apparent distress, Oriented x3 HEENT: Atraumatic, PERRLA, EOMI Neck: Supple, JVD not distended Respiratory: Clear to auscultation bilaterally, Normal air movement Cardiovascular: Regular rate/rhythm, Normal S1 S2 Gastrointestinal: Normal bowel sounds, No tenderness Musculoskeletal: No tenderness Integumentary: No rashes Neurological: Normal speech, Normal tone, Normal affect Lymphatics: No axilla or inguinal lymphadenopathy - Studies Microbiology Data (last 24 hrs): 07/04/18 13:40 Blood - Blood Anaerobic Blood Culture - Final Assessment And Plan - Plan This is a 78-year-old female with: Intractable nausea and vomiting Abdominal pain Reports much improved abdominal pain and almost resolved intractable nausea and vomiting. Continue diet as tolerated Zofran as needed for nausea GI consulted, so this may be done outpatient if patient clinically improving. Anorexia States that she does not enjoy the hospital food as much. Encouraged daughter to get patient whenever she would likely we as long as patient tolerates without any abdominal pain, nausea or vomiting. Continue appetite stimulant Hypertension Stable, continue home dosage of lisinopril and amlodipine. Multiple recent falls Patient with multiple recent falls, states she fell on her and hurt her head. She has some hip pain. Had x-rays ordered, pending. Once reviewed, will have physical therapy evaluation. History of breast cancer, status post chemotherapy DVT prophylaxis: Lovenox GI prophylaxis: Protonix Diet: Regular Disposition: Pending symptomatic improvement. Encouraged daughter to bring the patient food that she likes. Physician Review: Patient Assessed, Agree with Above Assessment and Plan Time Spent Managing PTS Care (In Minutes): 45
[2018-07-07] MEDS ORDERED: LEVOTHYROXINE SOD 0.05 MG TABLET ONE (05:40)
[2018-07-07] MEDS: LISINOPRIL 20 MG TAB PO SCH (05:48)
[2018-07-07] MEDS: hydroCHLOROthiazide 12.5 MG CAP PO SCH (05:48)
[2018-07-07] MEDS: LEVOTHYROXINE SOD 0.05 MG TABLET PO SCH (05:49)
[2018-07-07] MEDS: AMLODIPINE 10 MG TAB PO SCH (05:49)
[2018-07-07] MEDS: ENOXAPARIN 40 MG/0.4 ML SQ SCH (09:43)
[2018-07-07] MEDS: FLUCONAZOLE 100 MG TAB PO SCH (09:43)
[2018-07-07] MEDS: NYSTATIN 500,000 UNIT/5 ML UDC PO SCH (09:43)
== END 2018-07-07 13:04 | disposition home or self-care (01) ==
LOC: ER 12:43 → 2ND 17:29
PROVIDERS: ADMIT Family Medicine; ATTEND Hospitalist
DX: R11.2 Nausea with vomiting, unspecified (principal); R10.9 Unspecified abdominal pain; B37.81 Candidal esophagitis; E03.9 Hypothyroidism, unspecified; I10 Essential (primary) hypertension; R63.0 Anorexia; Z68.24 Body mass index [BMI] 24.0-24.9, adult; Z96.651 Presence of right artificial knee joint; Z85.3 Personal history of malignant neoplasm of breast
CPT/HCPCS: 36415 ×2; 71045; 71275; 73502; 74177; 80048; 80053; 80076; 81003; 82550; 82553; 82805; 83605 ×2; 83735 ×2; 84100; 84145; 84484; 85025 ×2; 85610; 85730; 87040 ×2; 93005; 94760 ×6; 96361; 96374; 96375; 97163; 99285; G0378 ×2; J1650 ×3; J2405 ×4; J3010; J3475; J7030 ×2; Q9967; 90670; Q2035